=== PATIENT | female | born 1970 | race Caucasian/White ===

== ENCOUNTER 2016-11-16 13:40 | Outpatient (CLI) | payer MEDICARE, MEDICAID | END 2016-11-16 23:59 | disposition home or self-care (01) | LOC: WOU 13:40 | PROVIDERS: ATTEND Podiatrist Foot & Ankle Surgery | DX: S91.311A Laceration without foreign body, right foot, initial encounter (principal); X58.XXXA Exposure to other specified factors, initial encounter; Y92.89 Other specified places as the place of occurrence of the external cause; Z83.3 Family history of diabetes mellitus; J45.909 Unspecified asthma, uncomplicated; Z87.891 Personal history of nicotine dependence | CPT/HCPCS: 11042; A6402 ×2 ==

== ENCOUNTER 2016-11-30 14:03 | Outpatient (CLI) | payer MEDICARE, MEDICAID | END 2016-11-30 23:59 | disposition home or self-care (01) | LOC: WOU 14:03 | PROVIDERS: ATTEND Podiatrist Foot & Ankle Surgery | DX: L97.411 Non-pressure chronic ulcer of right heel and midfoot limited to breakdown of skin (principal); X58.XXXS Exposure to other specified factors, sequela; T14.90 Injury, unspecified; Z83.3 Family history of diabetes mellitus; Z87.891 Personal history of nicotine dependence; R60.0 Localized edema | CPT/HCPCS: 11042; A6402 ==

== ENCOUNTER 2016-12-07 12:45 | Outpatient (CLI) | payer MEDICARE, MEDICAID | END 2016-12-07 23:59 | disposition home or self-care (01) | LOC: WOU 12:45 | PROVIDERS: ATTEND Podiatrist Foot & Ankle Surgery | DX: S91.311A Laceration without foreign body, right foot, initial encounter (principal); X58.XXXA Exposure to other specified factors, initial encounter; Y92.89 Other specified places as the place of occurrence of the external cause; Z87.891 Personal history of nicotine dependence; L84 Corns and callosities; R60.0 Localized edema | CPT/HCPCS: 11042; A6402 ==

== ENCOUNTER 2016-12-14 14:02 | Outpatient (CLI) | payer MEDICARE, MEDICAID | END 2016-12-14 23:59 | disposition home or self-care (01) | LOC: WOU 14:02 | PROVIDERS: ATTEND Podiatrist Foot & Ankle Surgery | DX: S91.311D Laceration without foreign body, right foot, subsequent encounter (principal); X58.XXXD Exposure to other specified factors, subsequent encounter; L84 Corns and callosities; R60.0 Localized edema; Z87.891 Personal history of nicotine dependence; Z83.3 Family history of diabetes mellitus; F20.9 Schizophrenia, unspecified; E03.9 Hypothyroidism, unspecified | CPT/HCPCS: 11042; A6402 ==

== ENCOUNTER 2016-12-21 14:49 | Outpatient (CLI) | payer MEDICARE, MEDICAID | END 2016-12-21 23:59 | disposition home or self-care (01) | LOC: WOU 14:49 | PROVIDERS: ATTEND Podiatrist Foot & Ankle Surgery | DX: L97.411 Non-pressure chronic ulcer of right heel and midfoot limited to breakdown of skin (principal); S91.311S Laceration without foreign body, right foot, sequela; Z87.891 Personal history of nicotine dependence; Z83.3 Family history of diabetes mellitus; F20.9 Schizophrenia, unspecified; E03.9 Hypothyroidism, unspecified | CPT/HCPCS: 11042; A6402 ==

== ENCOUNTER 2016-12-28 13:34 | Outpatient (CLI) | payer MEDICARE, MEDICAID | END 2016-12-28 23:59 | disposition home or self-care (01) | LOC: WOU 13:34 | PROVIDERS: ATTEND Podiatrist Foot & Ankle Surgery | DX: S91.311S Laceration without foreign body, right foot, sequela (principal); X58.XXXS Exposure to other specified factors, sequela; L84 Corns and callosities; R60.0 Localized edema; Z83.3 Family history of diabetes mellitus; Z87.891 Personal history of nicotine dependence; E89.0 Postprocedural hypothyroidism; F20.9 Schizophrenia, unspecified | CPT/HCPCS: 11042; 73630; A6402 ==

== ENCOUNTER 2017-01-04 14:48 | Outpatient (CLI) | payer MEDICARE, MEDICAID | END 2017-01-04 23:59 | disposition home or self-care (01) | LOC: WOU 14:48 | PROVIDERS: ATTEND Podiatrist Foot & Ankle Surgery | DX: S91.311D Laceration without foreign body, right foot, subsequent encounter (principal); X58.XXXD Exposure to other specified factors, subsequent encounter; L84 Corns and callosities; R60.0 Localized edema; Z87.891 Personal history of nicotine dependence; Z83.3 Family history of diabetes mellitus; E89.0 Postprocedural hypothyroidism; F20.9 Schizophrenia, unspecified; K21.9 Gastro-esophageal reflux disease without esophagitis; J45.909 Unspecified asthma, uncomplicated; Z79.899 Other long term (current) drug therapy | CPT/HCPCS: 11042; A6402 ==

== ENCOUNTER 2017-01-11 14:15 | Outpatient (CLI) | payer MEDICARE, MEDICAID | END 2017-01-11 23:59 | disposition home or self-care (01) | LOC: WOU 14:15 | PROVIDERS: ATTEND Podiatrist Foot & Ankle Surgery | DX: S91.311A Laceration without foreign body, right foot, initial encounter (principal); X58.XXXA Exposure to other specified factors, initial encounter; L84 Corns and callosities; R60.0 Localized edema; Z87.891 Personal history of nicotine dependence; Z83.3 Family history of diabetes mellitus; E89.0 Postprocedural hypothyroidism; F20.9 Schizophrenia, unspecified; K21.9 Gastro-esophageal reflux disease without esophagitis; J45.909 Unspecified asthma, uncomplicated; Z79.899 Other long term (current) drug therapy | CPT/HCPCS: 11042; A6402 ==

== ENCOUNTER 2017-01-18 12:45 | Outpatient (CLI) | payer MEDICARE, MEDICAID | END 2017-01-18 23:59 | disposition home or self-care (01) | LOC: WOU 12:45 | PROVIDERS: ATTEND Podiatrist Foot & Ankle Surgery | DX: L97.411 Non-pressure chronic ulcer of right heel and midfoot limited to breakdown of skin (principal); S91.311S Laceration without foreign body, right foot, sequela; Z91.19 Patient's noncompliance with other medical treatment and regimen; L84 Corns and callosities; R60.0 Localized edema; Z87.891 Personal history of nicotine dependence; Z83.3 Family history of diabetes mellitus; E89.0 Postprocedural hypothyroidism; E20.9 Hypoparathyroidism, unspecified; K21.9 Gastro-esophageal reflux disease without esophagitis; J45.909 Unspecified asthma, uncomplicated; Z79.899 Other long term (current) drug therapy | CPT/HCPCS: A6402 ==

== ENCOUNTER 2017-01-25 13:02 | Outpatient (CLI) | payer MEDICARE, MEDICAID | END 2017-01-25 23:59 | disposition home or self-care (01) | LOC: WOU 13:02 | PROVIDERS: ATTEND Podiatrist Foot & Ankle Surgery | DX: S91.311D Laceration without foreign body, right foot, subsequent encounter (principal); X58.XXXD Exposure to other specified factors, subsequent encounter; Z87.891 Personal history of nicotine dependence; F20.9 Schizophrenia, unspecified; L84 Corns and callosities | CPT/HCPCS: 97597; A6402 ==

== ENCOUNTER 2017-02-01 12:26 | Outpatient (CLI) | payer MEDICARE, MEDICAID | END 2017-02-01 23:59 | disposition home or self-care (01) | LOC: WOU 12:26 | PROVIDERS: ATTEND Podiatrist Foot & Ankle Surgery | PROC: 0JBQ0ZZ Excision of Right Foot Subcutaneous Tissue and Fascia, Open Approach (ICD-10-PCS; principal; 2017-02-01) | DX: S91.311A Laceration without foreign body, right foot, initial encounter (principal); X58.XXXA Exposure to other specified factors, initial encounter; B35.3 Tinea pedis; R60.0 Localized edema; L84 Corns and callosities; Z87.891 Personal history of nicotine dependence | CPT/HCPCS: 11042; A6402 ==

== ENCOUNTER 2017-02-08 13:00 | Outpatient (CLI) | payer MEDICARE, MEDICAID | END 2017-02-08 23:59 | disposition home or self-care (01) | LOC: WOU 13:00 | PROVIDERS: ATTEND Podiatrist Foot & Ankle Surgery | DX: S91.311D Laceration without foreign body, right foot, subsequent encounter (principal); X58.XXXD Exposure to other specified factors, subsequent encounter; B35.3 Tinea pedis; L84 Corns and callosities; R60.0 Localized edema; Z91.19 Patient's noncompliance with other medical treatment and regimen; J45.909 Unspecified asthma, uncomplicated; E07.9 Disorder of thyroid, unspecified; Z79.899 Other long term (current) drug therapy | CPT/HCPCS: A6402; G0463 ==